=== PATIENT | male | born 1940 | race Caucasian/White ===

== ENCOUNTER → 2016-05-04 | Day surgery (SDC) | payer MEDICARE, BC ==
[~2016-05-04] MED LIST: ALLOPURINOL300 MG PO; AMLODIPINE5 MG OR; AMLODIPINE5 MG PO; ASPIRIN EC LOW81 MG PO; BL ADULT ASA81 MG PO; CADUET5 MG/10 MG PO; CARB/LEVO1 TA5 PO; CARDIZEM CD 180 PO; CARDIZEM CD240 MG PO; CEFTIN500 MG PO; CIPROFLOXACN250 MG PO; CIPROFLOXACN500 MG PO; COLCHICINE0.6 M1 OR; COUMADIN1 MG PO; COUMADIN2.5 MG PO; DIGOXIN0.25 MG PO; DILAUDID 2MG2 MG/TAB PO; DILTIAZEM240 MG PO; HYDROCHLORO25 MG/TAB PO; INDOCIN50 MG/CAP PO; LISINOPRIL10 MG PO; LISINOPRIL20 MG PO; LORTAB 10 PO; LORTAB 1010 MG PO; LORTAB 7.57.5 MG PO; LOVENOX80 MG/0.8 SC; METOPROL TAR100 M1 OR; METOPROL TAR100 M1 PO; METOPROL TAR50 MG OR; METOPROLOL TAR100 MG PO; METOPROLOL100 M1 PO; MULTI VIT PO; NIACIN500 M2 PO; NIACIN500 MG PO; OMEPRAZOLE20 MG PO; PRILOSEC20 MG/CAP PO; SIMVASTATIN20 MG PO; TOPROL XL100 MG PO; WARFARIN2.5 MG OR; WARFARIN5 MG PO; ZOLOFT100 MG PO; ZOLOFT50 MG PO
== END ==
LOC: ORM 06:40
PROVIDERS: ATTEND Anesthesiology Pain Medicine
DX: M54.5 Low back pain (principal); Z53.8 Procedure and treatment not carried out for other reasons

== ENCOUNTER 2019-10-22 06:25 | Day surgery (SDC) | payer MEDICARE, BC ==
[~2019-10-22] VITALS: Ht 172.7 cm; Wt 74.4 kg
[~2019-10-22 06:25] MED LIST changes: +BENAZEPRIL5 MG PO; +BREO ELLIPTA 101 INH IN; +FLUOROURACIL51 EX; +LOPRESSOR50 M2 PO; +MULTIVITAMIN PO; +OMEGA 3-6-9 COMPLEX PO; +PRIMIDONE50 MG PO; +PROAIR HFA IN; +SERTRALINE50 MG PO; +WARFARIN3 MG PO
[2019-10-22 08:28] VITALS: BP 184/74
--- NOTE | 2019-11-01 15:47 | NUR ---
PER PHYSICIAN, PATIENT NOTIFIED OF NEGATIVE RESULTS, NO NEED FOR FURTHER COLONOSCOPY, UNLESS PATIENT HAS CONCERNS. PATIENT AGREED TO INFORMATION PROVIDED, AND NO FURTHER CONCERNS VOICED AT TIME OF CALL.
== END 2019-10-22 08:50 | disposition home or self-care (01) ==
LOC: ENDO 06:25 → ORM 08:00 → ENDO 08:50
PROVIDERS: ATTEND Surgery
PROC: 0DB78ZX Excision of Stomach, Pylorus, Via Natural or Artificial Opening Endoscopic, Diagnostic (ICD-10-PCS; principal; 2019-10-22)
PROC: 0DBH8ZX Excision of Cecum, Via Natural or Artificial Opening Endoscopic, Diagnostic (ICD-10-PCS; 2019-10-22)
DX: K29.51 Unspecified chronic gastritis with bleeding (principal); K44.9 Diaphragmatic hernia without obstruction or gangrene; K57.31 Diverticulosis of large intestine without perforation or abscess with bleeding; D12.0 Benign neoplasm of cecum; K64.8 Other hemorrhoids; Z79.01 Long term (current) use of anticoagulants; Z95.5 Presence of coronary angioplasty implant and graft; Z95.0 Presence of cardiac pacemaker; Z20.828 Contact with and (suspected) exposure to other viral communicable diseases

== ENCOUNTER 2020-10-09 16:07 | Emergency (ER) | payer MEDICARE, BC ==
[~2020-10-09] VITALS: Ht 172.7 cm; Wt 71.0 kg
[2020-10-09 16:50] LABS: GFR > 60 ML/MIN (>=60 (CALC)); GFR FOR AFR.AMER. > 60 ML/MIN (>=60 (CALC))
[2020-10-09 16:53] LABS: HEMATOCRIT 38.4 % (39.0-50.0); HEMOGLOBIN 12.3 g/dl (14.0-18.0); IMMATURE GRANULOCYTES 0.1 % (0.0-5.0); MEAN CELL VOLUME 107.9 fL CALC (80.0-100.0); MEAN CORPUSCULAR HGB 34.6 pG CALC (26.0-32.0); NEUT# 4.17 thou/uL (1.82-7.42); RED BLOOD COUNT 3.56 mill/uL (4.70-6.10); RED CELL DISTRI WIDTH 12.3 % (11.5-15.5)
[2020-10-09 17:06] LABS: ALBUMIN 4.1 g/dL (3.2-5.0); ALKALINE PHOSPHATASE 102 u/l (38-126); BILIRUBIN, TOTAL 0.3 mg/dL (0.0-1.4); BUN 23 mg/dL (8-23); BUN/CREATININE RATIO 26 (12-20 (CALC)); CHLORIDE 104 mmol/l (95-108); CREATININE 0.9 mg/dL (0.7-1.3); GFR > 60 ML/MIN (>=60 (CALC)); GFR FOR AFR.AMER. > 60 ML/MIN (>=60 (CALC)); POTASSIUM 4.4 mmol/l (3.5-5.1); SGOT/AST 43 u/l (19-48); SODIUM 136 mmol/l (137-146)
[2020-10-09 17:08] LABS: ANION GAP 14 (6-22 (CALC)); CARBON DIOXIDE 22 mmol/l (22-30)
[2020-10-09 17:09] LABS: INTERNATIONAL NORMALIZED RATIO 0.9 RATIO (0.7-1.3); PROTHROMBIN TIME 9.7 SECONDS (9.0-12.5)
[2020-10-09 18:06] VITALS: BP 162/71
== END 2020-10-09 17:59 | disposition short-term general hospital (02) ==
LOC: ED 16:07
PROVIDERS: Family Medicine
DX: I63.9 Cerebral infarction, unspecified (principal); G83.21 Monoplegia of upper limb affecting right dominant side; R29.700 NIHSS score 0; I48.91 Unspecified atrial fibrillation; I10 Essential (primary) hypertension; I25.10 Atherosclerotic heart disease of native coronary artery without angina pectoris; Z95.5 Presence of coronary angioplasty implant and graft; Z95.0 Presence of cardiac pacemaker; Z20.822 Contact with and (suspected) exposure to COVID-19
CPT/HCPCS: J2997

== ENCOUNTER 2021-11-20 12:11 | Emergency (ER) | payer MEDICARE, BC ==
[~2021-11-20] VITALS: Ht 172.7 cm; Wt 72.7 kg
[2021-11-20] MEDS ORDERED: BACTROBAN TOP (12:39)
[2021-11-20 12:51] VITALS: BP 162/59
== END 2021-11-20 12:51 | disposition home or self-care (01) ==
LOC: ED 12:11
DX: S80.862A Insect bite (nonvenomous), left lower leg, initial encounter (principal); S80.861A Insect bite (nonvenomous), right lower leg, initial encounter; E78.5 Hyperlipidemia, unspecified; F32.A Depression, unspecified; W57.XXXA Bitten or stung by nonvenomous insect and other nonvenomous arthropods, initial encounter